=== PATIENT | female | born 1950 | race Caucasian/White ===

== ENCOUNTER 2016-06-22 14:07 | Observation (INO) | payer MEDICAID, MEDICARE, OTHER ==
[2016-06-22] MEDS ORDERED: ASPIRIN 81 MG CHEWABLE TAB PO ONE ×2 (14:15→14:24)
--- NOTE | 2016-06-22 14:31 | CPEKG ---
Heart Rate: 98 RR Interval: 612 P-R Interval: 152 QRSD Interval: 84 QT Interval: 344 QTC Interval: 440 P [place]: 71 QRS [place]: 55 T Wave [place]: 69 EKG Severity - ABNORMAL ECG - EKG Impression: SINUS RHYTHM EKG Impression: ABNRM R PROG, CONSIDER ASMI OR LEAD PLACEMENT Electronically Signed By: Edouard Haque 22-Jun-2016 15:49:43
--- NOTE | 2016-06-22 14:38 | EDPHY ---
H & P Time Seen by Provider: 06/22/16 14:15 HPI/ROS: HPI Chest discomfort, left arm pain. 65-year-old female by private vehicle with her friend. This patient reports that she developed chest tightness and pressure yesterday mid day. She reports it was associated with a numbness and aching in her left shoulder and left arm. She reports that she was also sweaty. She reports that she thought it was a panic attack. She took a clonazepam and her symptoms gradually went away. She reports that she woke up this morning with the exact same symptoms which is very unusual for her. She does not have a prior history of coronary artery disease. No history of pulmonary embolism or coagulopathy. ROS: Constitutional: No fever, no chills. No weakness. Eyes: No discharge. No changes in vision. ENT: No sore throat. No nasal congestion or rhinorrhea. Respiratory: No cough. No shortness of breath. Cardiac: No chest pain, no palpitations. Gastrointestinal: No abdominal pain, no vomiting, no diarrhea. Genitourinary: No hematuria. No dysuria or increased frequency with urination. Musculoskeletal: No back pain. No neck pain. No myalgias or arthralgias. Skin: No rashes. Neurological: No headache. No focal weakness or altered sensation. Past medical history: Fibromyalgia, anxiety. Social history: Smoker. Here with her friend. Physical Exam: General Appearance: Alert, no distress. This patient is responding to questions appropriately and in full sentences. This patient appears well- hydrated and well-nourished. Eyes: Pupils equal and round no pallor or injection. No lid edema, erythema or injection. Respiratory: There are no retractions, lungs are clear to auscultation with diminished air movement bilaterally. No tachypnea. Cardiovascular: Regular rate and rhythm. No murmur. Gastrointestinal: Abdomen is soft and nontender, no masses, bowel sounds normal. No focal tenderness at McBurney's point. No Chacon sign. Neurological: Motor sensory function is grossly intact. Cranial nerves are normal. Gait is normal. Skin: Warm and dry, no rashes. Musculoskeletal: Neck is supple and nontender. Extremities are symmetrical. No calf tenderness or swelling on palpation. No palpable cords. All joints range without pain or impingement. Psychiatric: No agitation. No depression. Database: EKG: EKG time is 2:20 p.m.; EKG shows a narrow complex normal sinus rhythm with a ventricular rate of 98. QS waves in V1 and V2. The WA, QRS, QT intervals are within normal limits. There are no ST-T wave changes indicative of ischemic or injury pattern. No evidence of right heart strain. Interpreted by me. Imaging: Chest x-ray AP portable; the cardiac mediastinal silhouette is unremarkable. No evidence of infiltrate or pneumothorax. No acute cardiopulmonary disease process noted. Interpreted by me. The radiology report per Dr. Draper is: Possible left lateral rib fracture. Clinically, there is no history of trauma. The patient denies tenderness on palpation to this area. Procedures: Emergency department course: At the time of my evaluation her chest discomfort and arm pain have resolved. She was placed on a cardiac monitor technician. IV was placed. EKG was performed. She was given 324 mg of chewed aspirin. 3:25 p.m., patient re-evaluated. Resting comfortably at this time. No chest pain. No shortness of breath. Results of diagnostic test discussed. Plan for admission that was previously discussed with her was reviewed. She endorses. All of her questions were answered. 3:30 p.m., spoke with hospitalist. Patient accepted for admission. Patient admitted to the [facility] in stable condition. Differential Diagnosis: The differential diagnosis on this patient includes but is not limited to acute coronary syndrome, myocardial infarction, anxiety attack. PE, aortic dissection , pneumonia, pneumothorax unlikely. This represents a partial list of diagnoses considered. These considerations are based on history, physical exam , past history, reassessment and diagnostic testing. Smoking Status: Current every day smoker Constitutional: Initial Vital Signs Temperature (C) 36.8 C 06/22/16 14:10 Heart Rate 85 06/22/16 14:10 Respiratory Rate 16 06/22/16 14:10 Blood Pressure 123/83 H 06/22/16 14:10 O2 Sat (%) 97 06/22/16 14:10 O2 Delivery Mode Room Air Allergies/Adverse Reactions: No Known Allergies Allergy (Unverified 09/04/14 10:05) Home Medications: Medication Instructions Recorded Ambien 5MG (*) 06/22/16 CLONAZEPAM 06/22/16 Flexeril 10 MG (*) 06/22/16 Medical Decision Making - Data Points Laboratory Results: Laboratory Results 06/22/16 14:25 01/16/17 14:25 06/22/16 14:25 WBC 6.28 10^3/uL (3.80-9.50) RBC 4.74 10^6/uL (4.18-5.33) Hgb 14.8 g/dL (12.6-16.3) Hct 42.3 % (38.0-47.0) MCV 89.2 fL (81.5-99.8) MCH 31.2 pg (27.9-34.1) MCHC 35.0 g/dL (32.4-36.7) RDW 13.1 % (11.5-15.2) Plt Count 327 10^3/uL (150-400) MPV 8.7 fL (8.7-11.7) Neut % (Auto) 47.9 % (39.3-74.2) Lymph % (Auto) 40.1 % (15.0-45.0) [place] % (Auto) 9.7 % (4.5-13.0) Eos % (Auto) 1.1 % (0.6-7.6) Baso % (Auto) 1.0 % (0.3-1.7) Nucleat RBC Rel Count 0.0 % (0.0-0.2) Absolute Neuts (auto) 3.01 10^3/uL (1.70-6.50) Absolute Lymphs (auto) 2.52 10^3/uL (1.00-3.00) Absolute Monos (auto) 0.61 10^3/uL (0.30-0.80) Absolute Eos (auto) 0.07 10^3/uL (0.03-0.40) Absolute Basos (auto) 0.06 10^3/uL (0.02-0.10) Absolute Nucleated RBC 0.00 10^3/uL (0-0.01) Immature Gran % 0.2 % (0.0-1.1) Immature Gran # 0.01 10^3/uL (0.00-0.10) PT 13.5 SEC (12.0-15.0) INR 1.04 (0.83-1.16) APTT 43.0 H SEC (23.0-38.0) Sodium 133 L mEq/L (134-144) Potassium 4.0 mEq/L (3.5-5.2) Chloride 99 mEq/L (97-110) Carbon Dioxide 22 mEq/l (22-31) Anion Gap 12 mEq/L (8-16) BUN 7 mg/dL (7-23) Creatinine 0.7 mg/dL (0.6-1.0) Estimated GFR > 60 Glucose 94 mg/dL (70-100) Calcium 9.1 mg/dL (8.5-10.4) Troponin I < 0.012 ng/mL (0-0.034) Medications Given: Discontinued Medications Aspirin (Aspirin) 324 mg PO EDNOW ONE Stop: 06/22/16 14:16 Last Admin: 06/22/16 14:29 Dose: Not Given Aspirin (Aspirin) 243 mg PO EDNOW ONE Stop: 06/22/16 14:25 Last Admin: 06/22/16 14:29 Dose: 243 mg Departure - Departure Disposition: [facility] Inpatient Acute Clinical Impression: Chest discomfort Referrals: Sasha Mejia MD [Primary Care Provider] - As per Instructions
[2016-06-22 14:39] LABS: % IMMATURE GRANULYOCYTES 0.2 % (0.0-1.1); ABSOLUTE IMMATURE GRANULOCYTES 0.01 10^3/uL (0.00-0.10); ADD DIFF? NO; ADD MORPH? NO; ADD SCAN? NO; ATYPICAL LYMPHOCYTE FLAG 10 (0-99); FRAGMENT RBC FLAG 0 (0-99); HEMATOCRIT 42.3 % (38.0-47.0); HEMOGLOBIN 14.8 g/dL (12.6-16.3); LEFT SHIFT FLG 0 (0-99); LIPEMIA HEMOLYSIS FLAG 90 (0-99); MEAN CELL HEMOGLOBIN 31.2 pg (27.9-34.1); MEAN CELL VOLUME 89.2 fL (81.5-99.8); MEAN PLATELET VOLUME 8.7 fL (8.7-11.7); PLATELET CLUMPS FLAG 10 (0-99); PLATELET COUNT 327 10^3/uL (150-400); RED BLOOD CELL COUNT 4.74 10^6/uL (4.18-5.33); RED CELL DISTRIBUTION WIDTH 13.1 % (11.5-15.2)
[2016-06-22 14:47] LABS: ANION GAP 12 mEq/L (8-16); CALCIUM 9.1 mg/dL (8.5-10.4); CARBON DIOXIDE 22 mEq/l (22-31); CHLORIDE 99 mEq/L (97-110); CREATININE 0.7 mg/dL (0.6-1.0); GLOMERULAR FILTRATION RATE > 60; GLUCOSE 94 mg/dL (70-100); SODIUM 133 mEq/L (134-144)
[2016-06-22 14:48] LABS: INR 1.04 (0.83-1.16); PROTIME(PATIENT) 13.5 SEC (12.0-15.0)
--- NOTE | 2016-06-22 14:56 | DX ---
Portable Chest , 14:39 History: Chest pain. Chest tightness. Left shoulder pain. Comparison: September 04, 2014 Findings: There is a possible left lateral 7th rib fracture. Lungs clear. Heart normal. No pneumothor ax or pleural effusion. There is a chronic thoracic dextro scoliosis. EKG leads overlie the chest. Impression: Possible left lateral rib fracture. Might rib x-rays be of any use? Results called to Dr. Haque.
[2016-06-22 14:59] LABS: TROPONIN I < 0.012 ng/mL (0-0.034)
[2016-06-22] MEDS ORDERED: NITROGLYCERIN 0.4 MG BTL SL PRN (16:50)
[2016-06-22] MEDS ORDERED: ACETAMINOPHEN 325 MG TAB PO PRN (16:50)
[2016-06-22] MEDS ORDERED: ONDANSETRON DISINTEGRATING 4 MG TAB PO PRN (16:50)
[2016-06-22] MEDS ORDERED: ONDANSETRON 4 MG/2 ML VIAL IVP PRN (16:50)
[2016-06-22] MEDS ORDERED: CYCLOBENZAPRINE 10 MG TAB PO PRN (16:54)
[2016-06-22] MEDS ORDERED: ZOLPIDEM TARTRATE 5 MG TAB PO PRN (16:54)
[2016-06-22] MEDS ORDERED: clonazePAM 0.5 MG TAB PO PRN (16:54)
--- NOTE | 2016-06-22 16:59 | PDEACUHP ---
History and Physical - Chief Complaint chest pain - History of Present Illness 65 yo female with h/o anxiety and fibromyalgia presents to ED with vague chest pain symptoms. Since yesterday, she has felt clammy and nauseous. She took Klonopin for these symptoms yesterday and they completely resolved. However, this am, the symptoms recurred and she reported a pain in her left chest, pressure like, radiating to her left shoulder. No associated SOB or diaphoresis , though the clamminess persisted even when the CP is absent. She received a full dose ASA in the ED. Her pain is completely resolved at the time of my interview and she believes it was all a panic attack. She has suffered from panic attacks in the past, but these symptoms felt more concerning thus she presented to the ED. She had a normal EKG and negative troponin. She is admitted to the hospital for further evaluation. History Information - Allergies/Home Medication List Allergies/Adverse Reactions: No Known Allergies Allergy (Unverified 09/04/14 10:05) Home Medications: Aspirin [Aspirin 325 mg (*)] 325 mg PO DAILY PRN 06/22/16 [Last Taken Unknown] Cyclobenzaprine [Flexeril 10 MG (*)] 10 mg PO DAILY PRN 06/22/16 [Last Taken ] Herbals/Supplements -Info Only 1 ea PO DAILY 06/22/16 [Last Taken Unknown] Naproxen Sodium [Aleve 220 MG (*)] 220 mg PO DAILY PRN 06/22/16 [Last Taken Unknown] Zolpidem Tartrate [Ambien 5MG (*)] 5 mg PO HS PRN 06/22/16 [Last Taken 06/21/16] clonazePAM [Klonopin (*)] 0.5 mg PO DAILY PRN 06/22/16 [Last Taken 06/21/16 21: 00] I have personally reviewed and updated: family history, medical history, social history, surgical history - Past Medical History fibromyalgia (anxiety) - Surgical History Reports: no pertinent surgical hx - Family History Additional family history: no family h/o PHD - Social History Smoking Status: Current every day smoker Alcohol Use: None Drug Use: None Physical Exam Temp Pulse Resp BP Pulse Ox 36.2 C 81 20 145/81 H 96 06/22/16 16:02 06/22/16 16:02 06/22/16 16:02 06/22/16 16:02 06/22/16 16:02 Constitutional: no apparent distress Eyes: PERRL Ears, Nose, Mouth, Throat: moist mucous membranes Cardiovascular: regular rate and rhythym, no murmur, rub, or gallop Respiratory: no respiratory distress, clear to auscultation Gastrointestinal: normoactive bowel sounds, soft, non-tender abdomen Skin: warm Neurologic: AAOx3 Psychiatric: interacting appropriately Lab Data & Imaging Review 06/22/16 14:25 06/22/16 14:25 WBC 6.28 10^3/uL (3.80-9.50) 06/22/16 14:25 RBC 4.74 10^6/uL (4.18-5.33) 06/22/16 14:25 Hgb 14.8 g/dL (12.6-16.3) 06/22/16 14:25 Hct 42.3 % (38.0-47.0) 06/22/16 14:25 MCV 89.2 fL (81.5-99.8) 06/22/16 14:25 MCH 31.2 pg (27.9-34.1) 06/22/16 14:25 MCHC 35.0 g/dL (32.4-36.7) 06/22/16 14:25 RDW 13.1 % (11.5-15.2) 06/22/16 14:25 Plt Count 327 10^3/uL (150-400) 06/22/16 14:25 MPV 8.7 fL (8.7-11.7) 06/22/16 14:25 Neut % (Auto) 47.9 % (39.3-74.2) 06/22/16 14:25 Lymph % (Auto) 40.1 % (15.0-45.0) 06/22/16 14:25 [place] % (Auto) 9.7 % (4.5-13.0) 06/22/16 14:25 Eos % (Auto) 1.1 % (0.6-7.6) 06/22/16 14:25 Baso % (Auto) 1.0 % (0.3-1.7) 06/22/16 14:25 Nucleat RBC Rel Count 0.0 % (0.0-0.2) 06/22/16 14:25 Absolute Neuts (auto) 3.01 10^3/uL (1.70-6.50) 06/22/16 14:25 Absolute Lymphs (auto) 2.52 10^3/uL (1.00-3.00) 06/22/16 14:25 Absolute Monos (auto) 0.61 10^3/uL (0.30-0.80) 06/22/16 14:25 Absolute Eos (auto) 0.07 10^3/uL (0.03-0.40) 06/22/16 14:25 Absolute Basos (auto) 0.06 10^3/uL (0.02-0.10) 06/22/16 14:25 Absolute Nucleated RBC 0.00 10^3/uL (0-0.01) 06/22/16 14:25 Immature Gran % 0.2 % (0.0-1.1) 06/22/16 14:25 Immature Gran # 0.01 10^3/uL (0.00-0.10) 06/22/16 14:25 PT 13.5 SEC (12.0-15.0) 06/22/16 14:25 INR 1.04 (0.83-1.16) 06/22/16 14:25 APTT 43.0 SEC (23.0-38.0) H 06/22/16 14:25 Sodium 133 mEq/L (134-144) L 06/22/16 14:25 Potassium 4.0 mEq/L (3.5-5.2) 06/22/16 14:25 Chloride 99 mEq/L (97-110) 06/22/16 14:25 Carbon Dioxide 22 mEq/l (22-31) 06/22/16 14:25 Anion Gap 12 mEq/L (8-16) 06/22/16 14:25 BUN 7 mg/dL (7-23) 06/22/16 14:25 Creatinine 0.7 mg/dL (0.6-1.0) 06/22/16 14:25 Estimated GFR > 60 06/22/16 14:25 Glucose 94 mg/dL (70-100) 06/22/16 14:25 Calcium 9.1 mg/dL (8.5-10.4) 06/22/16 14:25 Troponin I < 0.012 ng/mL (0-0.034) 06/22/16 14:25 Assessment & Plan Assessment: Chest discomfort (Acute) - Low suspicion for ACS. CV risk factors include tobacco abuse. Pain is completely resolved. Initial EKG shows Q waves V1, V2, no prior h/o [place]. Repeat EKG without Q's in V2, suspect lead placement issue on initial tracing. Initial trop negative. CXR reported as possible left lateral rib fracture, but pt is non-tender, no h/o injury. Will admit to [facility], trend troponin, check lipid status in am. Exercise stress test in am if above w/u negative. Anxiety / panic attacks - prn klonopin Fibromyalgia - cont outpt meds Full code Dispo - obs
--- NOTE | 2016-06-22 17:22 | CPEKG ---
Heart Rate: 73 RR Interval: 822 P-R Interval: 172 QRSD Interval: 94 QT Interval: 400 QTC Interval: 441 P [place]: 71 QRS [place]: 53 T Wave [place]: 53 EKG Severity - NORMAL ECG - EKG Impression: SINUS RHYTHM Electronically Signed By: Kenroy Terrell 23-Jun-2016 17:21:56
[2016-06-23 02:37] LABS: CHOLESTEROL 216 mg/dL (140-220); CHOLESTEROL/HDL RATIO 3.93 RATIO (1.00-4.44); HIGH DENSITY LIPOPROTEIN 55 mg/dL (40-85); LOW DENSITY LIPOPROTEIN 143 mg/dL (80-100); NON-HIGH DENSITY LIPOPROTEIN 161 mg/dL (90-129); TRIGLYCERIDE 91 mg/dL (35-135); VERY LOW DENSITY LIPOPROTEINS 18 mg/dL (8-25)
[2016-06-23] MEDS ORDERED: ASPIRIN 325 MG TAB PO PRN (08:00)
[2016-06-23 08:53] VITALS: BP 116/66; PULSE 80; RESP 18; TEMP 98.7; O2SAT 96
--- NOTE | 2016-06-23 09:18 | CPEKG ---
Heart Rate: 77 RR Interval: 779 P-R Interval: 160 QRSD Interval: 96 QT Interval: 372 QTC Interval: 421 P [place]: 75 QRS [place]: 79 T Wave [place]: 69 EKG Severity - NORMAL ECG - EKG Impression: SINUS RHYTHM Electronically Signed By: Kenroy Terrell 23-Jun-2016 17:21:51
--- NOTE | 2016-06-23 10:29 | PDCARST ---
CAR Stress Test Results Type of Stress Test: TM stress test Indication: cp Description of Procedure: After informed consent was obtained, pt was established to ECG, BP, HR, oximetry monitoring. At b/l, pt has SR, BP 108/72, O2 sat 94% RA, and HR 87. Pt exercised for a total of 7 minutes without cp. No ischemic ECG changes noted. Occasional PAC/PVC singles through exercise. Peak BP 188/70. Pt achieved HR of 156 which is 100% of MPHR based on age. Recovery was unremarkable. O2 sats remained wnl throughout testing. Impression: Low risk TM stress test with DTS +7 Conclusion: Likely noncardiac cp
--- NOTE | 2016-06-23 11:16 | GDS ---
[f rep st] DISCHARGE SUMMARY DIAGNOSES: 1. Chest pain. 2. History of panic attacks. 3. History of fibromyalgia. 4. Anxiety. HOSPITAL COURSE: A 65-year-old female presented with vague chest pain. She felt that it was similar to her previous panic attacks, although the duration was longer. Because of that, she underwent car diac stress test which was negative for ischemia. Incidentally, a possible left 7th rib fracture was noted on x-ray. She does not have any tenderness to palpation and there are no symptoms that were c learly attributed to that. I think this is likely an artifact. She will be discharged in stable con dition. We will continue all of her home medications. /[id number]/MODL
== END 2016-06-23 12:13 | disposition home or self-care (01) ==
LOC: F1N 15:56
PROVIDERS: ADMIT Hospitalist; ATTEND Hospitalist
DX: R07.9 Chest pain, unspecified (principal); M79.602 Pain in left arm; F41.9 Anxiety disorder, unspecified; M79.7 Fibromyalgia; R91.8 Other nonspecific abnormal finding of lung field; F17.200 Nicotine dependence, unspecified, uncomplicated
CPT/HCPCS: 71010; 93005; 93017; 99285; G0378

== ENCOUNTER 2017-02-18 13:12 | Emergency (ER) | payer OTHER ==
[2017-02-18 13:18] VITALS: RESP 18
[2017-02-18] MEDS ORDERED: LORazepam 2 MG/ML INJ IVP ONE (14:59)
--- NOTE | 2017-02-18 15:03 | EDPHY ---
H & P Stated Complaint: "Feels like a panic attack but not sure". Body aches, chills Time Seen by Provider: 02/18/17 14:48 HPI/ROS: CHIEF COMPLAINT: Anxiety HISTORY OF PRESENT ILLNESS: The patient is a 66-year-old female who comes to the emergency department complaining of chills, anxiety, sweaty hands as well as spasms in her upper abdomen and left shoulder and occasional right arm and bilateral leg numbness. She has had the symptoms for 3 days and states that they are similar to previous panic attacks. She takes Klonopin 0.5 mg p.r.n. for these panic attacks. When she takes this it works however she has never had an attack last for 3 days before. She has also needed to double up on her medications for them to be affective. Her history of anxiety is managed by the [facility]. She denies history of depression or bipolar or other psychiatric history. She does have a history of fibromyalgia. She has been seen several times for similar symptoms. She was admitted in June of this year and had negative troponins and a stress test that was negative. She states that she is currently asymptomatic. She took aspirin today. REVIEW OF SYSTEMS: Constitutional: denies: chills, fever, recent illness, recent injury EENTM: denies: blurred vision, double vision, nose congestion Respiratory: denies: cough, shortness of breath Cardiac: See HPI denies: chest pain, irregular heart rate, lightheadedness, palpitations Gastrointestinal/Abdominal: denies: abdominal pain, diarrhea, nausea, vomiting, blood streaked stools Genitourinary: denies: dysuria, frequency, hematuria, pain Musculoskeletal: denies: joint pain, muscle pain Skin: denies: lesions, rash, jaundice, bruising Neurological: denies: headache, numbness, paresthesia, tingling, dizziness, weakness Hematologic/Lymphatic: denies: blood clots, easy bleeding, easy bruising Immunologic/allergic: denies: HIV/AIDS, transplant EXAM: GENERAL: Well-appearing, well-nourished and in no acute distress. HEAD: Atraumatic, normocephalic. EYES: Pupils equal round and reactive to light, extraocular movements intact, sclera anicteric, conjunctiva are normal. ENT: TMs normal, nares patent, oropharynx clear without exudates. Moist mucous membranes. NECK: Normal range of motion, supple without lymphadenopathy or JVD. LUNGS: Breath sounds clear to auscultation bilaterally and equal. No wheezes rales or rhonchi. HEART: Regular rate and rhythm without murmurs, rubs or gallops. ABDOMEN: Soft, nontender, normoactive bowel sounds. No guarding, no rebound. No masses appreciated. BACK: No CVA tenderness, no spinal tenderness, step-offs or deformities EXTREMITIES: Normal range of motion, no pitting or edema. No clubbing or cyanosis. NEUROLOGICAL: Cranial nerves II through XII grossly intact. Normal speech, normal gait. 5/5 strength, normal movement in all extremities, normal sensation PSYCH: Normal mood, normal affect. SKIN: Warm, dry, normal turgor, no visible rashes or lesions. Source: Patient Exam Limitations: No limitations - Personal History Current Tetanus Diphtheria and Acellular Pertussis (TDAP): Yes - Medical/Surgical History Hx Asthma: No Hx Chronic Respiratory Disease: No Hx Diabetes: No Hx Cardiac Disease: No Hx Renal Disease: No Hx Cirrhosis: No Hx Alcoholism: No Hx HIV/AIDS: No Hx Splenectomy or Spleen Trauma: No Other PMH: PMH- TONSILECTOMY,FIBROMYLAGIA, PANIC ATTACKS - Family History Significant Family History: No pertinent family hx - Social History Smoking Status: Current every day smoker Alcohol Use: Sober Drug Use: None Constitutional: Initial Vital Signs Temperature (C) 36.5 C 02/18/17 13:14 Heart Rate 87 02/18/17 13:14 Respiratory Rate 18 02/18/17 13:14 Blood Pressure 147/71 H 02/18/17 13:14 O2 Sat (%) 96 02/18/17 13:14 O2 Delivery Mode Room Air Allergies/Adverse Reactions: No Known Allergies Allergy (Unverified 09/04/14 10:05) Home Medications: Medication Instructions Recorded Aspirin [Aspirin 325 mg (*)] 325 mg PO DAILY PRN 06/22/16 Cyclobenzaprine [Flexeril 10 MG 10 mg PO DAILY PRN 06/22/16 (*)] Herbals/Supplements -Info Only 1 ea PO DAILY 06/22/16 Naproxen Sodium [Aleve 220 MG (*)] 220 mg PO DAILY PRN 06/22/16 Zolpidem Tartrate [Ambien 5MG (*)] 5 mg PO HS PRN 06/22/16 clonazePAM [Klonopin (*)] 0.5 mg PO DAILY PRN 06/22/16 LORazepam [Ativan 1 mg (RX)] 1 mg PO Q6-8PRN PRN #10 tab 02/18/17 Medical Decision Making - Diagnostics EKG Interpretation: An EKG obtained and was read and documented in trace view. Please see trace view for full reading and report. Sinus rhythm, no acute ischemic changes ED Course/Re-evaluation: Will repeat much of the tests previously done to evaluate for cardiac concerns. She is PERC negative for PE. 5:20 p.m. we discussed the lab results. The patient feels completely better after Ativan. She is reassured and eager to go home. I will give her a small prescription for Ativan to take p.r.n. until she follows up with her primary to discuss other options for anxiety treatment chronically. We also discussed indications for returning to the emergency department. Patient and friend agree. Differential Diagnosis: Partial list of the Differential diagnosis considered include but were not limited to; anxiety, acute coronary disease, and although unlikely based on the history and physical exam, I also considered PE, pneumonia, trauma, infection. I discussed these differential diagnoses and the plan with the patient as well as the usual and expected course. The patient understands that the diagnosis is provisional and that in medicine we are not always correct and that further workup is often warranted. Usual and customary warnings were given. All of the patient's questions were answered. The patient was instructed to return to the emergency department should the symptoms at all worsen or return, otherwise to followup with the physician as we discussed. - Data Points Laboratory Results: Laboratory Results 02/18/17 15:15 02/18/17 15:15 Medications Given: Discontinued Medications Lorazepam (Ativan Injection) 1 mg IVP EDNOW ONE Stop: 02/18/17 15:00 Last Admin: 02/18/17 15:17 Dose: 1 mg Departure - Departure Disposition: Home, Routine, Self-Care Clinical Impression: Chest discomfort, Anxiety about health Condition: Fair Instructions: Chest Pain (ED), Anxiety (ED) Referrals: Sasha Mejia MD [Primary Care Provider] - As per Instructions Prescriptions: LORazepam [Ativan 1 mg (RX)] 1 mg PO Q6-8PRN PRN #10 tab PRN Reason: *Anxiety/Agitation/Insomnia
--- NOTE | 2017-02-18 15:29 | CPEKG ---
Heart Rate: 71 RR Interval: 845 P-R Interval: 172 QRSD Interval: 90 QT Interval: 400 QTC Interval: 435 P [place]: 70 QRS [place]: 57 T Wave [place]: 53 EKG Severity - NORMAL ECG - EKG Impression: SINUS RHYTHM Electronically Signed By: Román Ramirez 18-Feb-2017 15:35:38
[2017-02-18 15:55] LABS: % IMMATURE GRANULYOCYTES 0.3 % (0.0-1.1); ABSOLUTE IMMATURE GRANULOCYTES 0.03 10^3/uL (0.00-0.10); ADD DIFF? NO; ADD MORPH? NO; ADD SCAN? NO; ATYPICAL LYMPHOCYTE FLAG 10 (0-99); FRAGMENT RBC FLAG 0 (0-99); HEMATOCRIT 42.8 % (38.0-47.0); HEMOGLOBIN 14.4 g/dL (12.6-16.3); LEFT SHIFT FLG 0 (0-99); LIPEMIA HEMOLYSIS FLAG 80 (0-99); MEAN CELL HEMOGLOBIN 31.6 pg (27.9-34.1); MEAN CELL HEMOGLOBIN CONCENTR. 33.6 g/dL (32.4-36.7); MEAN CELL VOLUME 93.9 fL (81.5-99.8); MEAN PLATELET VOLUME 9.4 fL (8.7-11.7); PLATELET CLUMPS FLAG 0 (0-99); PLATELET COUNT 304 10^3/uL (150-400); RED BLOOD CELL COUNT 4.56 10^6/uL (4.18-5.33); RED CELL DISTRIBUTION WIDTH 13.7 % (11.5-15.2)
[2017-02-18 16:09] LABS: INR 1.03 (0.83-1.16); PROTIME(PATIENT) 13.4 SEC (12.0-15.0)
[2017-02-18 16:10] LABS: APTT 33.6 SEC (23.0-38.0)
[2017-02-18 16:18] LABS: ALANINE AMINOTRANSFERASE 25 IU/L (9-52); ALBUMIN 4.5 g/dL (3.5-5.0); ALKALINE PHOSPHATASE 59 IU/L (38-126); ANION GAP 12 mEq/L (8-16); ASPARTATE AMINOTRANSFERASE 19 IU/L (14-46); BILIRUBIN,TOTAL 0.4 mg/dL (0.1-1.4); BILIRUBIN-CONJUGATED 0.2 mg/dL (0.0-0.5); BILIRUBIN-UNCONJUGATED 0.2 mg/dL (0.0-1.1); CALCIUM 9.4 mg/dL (8.5-10.4); CARBON DIOXIDE 22 mEq/l (22-31); CHLORIDE 101 mEq/L (97-110); CREATININE 0.7 mg/dL (0.6-1.0); GLOMERULAR FILTRATION RATE > 60; GLUCOSE 81 mg/dL (70-100); POTASSIUM 4.2 mEq/L (3.5-5.2); SODIUM 135 mEq/L (134-144); TOTAL PROTEIN 7.5 g/dL (6.3-8.2)
[2017-02-18 16:48] LABS: TROPONIN I < 0.012 ng/mL (0.000-0.034)
[2017-02-18 17:38] VITALS: BP 146/73; PULSE 75; TEMP 98.4; O2SAT 95
== END 2017-02-18 17:39 | disposition home or self-care (01) ==
DX: R07.89 Other chest pain (principal); F41.9 Anxiety disorder, unspecified; F17.200 Nicotine dependence, unspecified, uncomplicated; Z79.82 Long term (current) use of aspirin
CPT/HCPCS: 71020; 93005; 96374; 99285; J2060

== ENCOUNTER 2017-09-30 15:27 | Emergency (ER) | payer OTHER ==
--- NOTE | 2017-09-30 16:01 | CPEKG ---
Heart Rate: 102 RR Interval: 588 P-R Interval: 136 QRSD Interval: 96 QT Interval: 340 QTC Interval: 443 P [place]: 79 QRS [place]: 48 T Wave [place]: 68 EKG Severity - OTHERWISE NORMAL ECG - EKG Impression: SINUS TACHYCARDIA EKG Impression: VENTRICULAR PREMATURE COMPLEX Electronically Signed By: Wayne Perez 30-Sep-2017 21:02:57
--- NOTE | 2017-09-30 16:07 | EDPHY ---
HPI/HX/ROS/PE/MDM Narrative: CHIEF COMPLAINT: Shortness of breath, chest tightness, chills HISTORY OF PRESENT ILLNESS: The patient is a 67 y/o female with a history of fibromyalgia and panic attacks complaining of shortness of breath, chest pressure, and feeling clammy onset two days ago. When her symptoms initially started, she woke up with chills and eventually developed sweats, nausea, shortness of breath, lightheadedness, and intermittent chest pressure. She took 2 Aspirin yesterday without relief of symptoms. Today her symptoms continued and she became concerned as these symptoms feel like a panic attack that "wouldn't stop". Several hours ago she took 2 Aspririn and again had no relief of symptoms, so she decided to present to the emergency department. She is currently complaining of mild left flank pain and feels like she can't get enough air in when breathing. Denies change in symptoms when exerting herself. Fibromyalgia has not caused symptoms like this before. Denies history of asthma, emphysema, COPD, ME, cardiac stents, pedal edema, DVT, PE, or diabetes No fever, cough, upper respiratory infection, palpitations, vomiting, diarrhea, urinary complaints, headache. REVIEW OF SYSTEMS: Aside from elements discussed in the HPI, a comprehensive 10-point review of systems was reviewed and is negative. PAST MEDICAL HISTORY: Tonsillectomy, neuropathy, fibromyalgia, panic attacks SOCIAL HISTORY: Friend at bedside, lives in [place], employed, smoker VITAL SIGNS: Reviewed by me GENERAL: Well-developed, well-nourished. HEENT: Atraumatic. Eyes: No icterus, no injection. Mouth: moist mucous membranes. No erythema or lesions. Neck: supple with no adenopathy. LUNGS: Diminished breath sounds throughout, increased work of breathing, no wheezes, rhonchi or rales. CARDIAC: Isolated premature beat on room monitor, tachycardic when she initially presented to the emergency department, no rubs, murmurs or gallops. ABDOMEN: Soft, nontender, nondistended, bowel sounds normal. BACK: No CVA tenderness. EXTREMITIES: No trauma. No edema. Range of motion is normal throughout. NEURO: Alert and oriented, grossly nonfocal. SKIN: Warm and dry, no rash. PSYCHIATRIC: Normal mentation, no agitation. Portions of this note were transcribed by a medical insurance coding specialist. I personally performed a history, physical exam, medical decision making, and confirmed accuracy of information the transcribed note. ED Course: The patient is a 67 y/o female with a history of fibromyalgia and panic attacks presenting with shortness of breath, chest pressure, and feeling clammy onset two days ago. On exam she has diminished breath sounds throughout and increased work of breathing. On the room monitor she has an isolated premature beat and was tachycardic when she initially presented to the emergency department. Labs, EKG, and chest x-ray ordered. DuoNeb and albuterol administered. 1559: 12-LEAD EKG: Please see the full report in [facility]. My interpretation: Sinus tachycardia with a rate of 102, ventricular premature complex. Significant baseline artifact. 1750: Chest x-ray does not reveal active cardiopulmonary disease, suspect airways disease. Labs including troponin and ddimer negative. 1755: Reassessed patient and discussed imaging and laboratory findings. I discussed possibility of airways disease or COPD as cause of patient chest tightness She is reluctant to do so, but does understand my concerns. I have advised her to use her inhaler, Prednisone, and Clonazepam as directed. Return precautions provided; patient is comfortable with this plan. 1802: 12-LEAD EKG: Please see the full report in [facility]. My interpretation: Sinus rhythm with a rate of 93 Patient is safe to be discharged. S he will have her first dose of Prednisone hear and an additional DuoNeb prior to discharge. MDM: Diff dx considered included but not limited to airways disease, pulmonary infectious process, pulmonary embolism, anxiety, chest wall pain, cardiac causes including ACS. - Data Points Imaging: I viewed and interpreted images myself Laboratory Results: Laboratory Results 09/30/17 16:00 09/30/17 16:00 Medications Given: Discontinued Medications Albuterol (Proventil Neb) 3 ml IH EDNOW ONE Stop: 09/30/17 16:33 Last Admin: 09/30/17 16:38 Dose: 3 ml Albuterol (Proventil Neb) 3 ml IH EDNOW ONE Stop: 09/30/17 18:12 Last Admin: 09/30/17 18:27 Dose: 3 ml Albuterol Sulfate (Proventil Inh Prepack) 1 mdi TAKEHOME EDNOW ONE Stop: 09/30/17 18:39 Last Admin: 09/30/17 18:43 Dose: 1 mdi Albuterol/Ipratropium (Duoneb) 3 ml IH EDNOW ONE Stop: 09/30/17 16:33 Last Admin: 09/30/17 16:38 Dose: 3 ml Prednisone (Prednisone) 40 mg PO EDNOW ONE Stop: 09/30/17 17:58 Last Admin: 09/30/17 18:26 Dose: 40 mg General Time Seen by Provider: 09/30/17 16:01 Initial Vital Signs: Initial Vital Signs Temperature (C) 37.3 C 09/30/17 15:39 Heart Rate 110 H 09/30/17 15:39 Respiratory Rate 16 09/30/17 15:39 Blood Pressure 135/75 H 09/30/17 15:39 O2 Sat (%) 96 09/30/17 15:39 O2 Delivery Mode Room Air Allergies/Adverse Reactions: No Known Allergies Allergy (Unverified 09/04/14 10:05) Home Medications: Medication Instructions Recorded RX: Aspirin [Aspirin 325 mg (*)] 325 mg PO DAILY PRN 06/22/16 RX: Cyclobenzaprine [Flexeril 10 10 mg PO DAILY PRN 06/22/16 MG (*)] RX: Herbals/Supplements -Info Only 1 ea PO DAILY 06/22/16 RX: Naproxen Sodium [Aleve 220 MG 220 mg PO DAILY PRN 06/22/16 (*)] RX: Zolpidem Tartrate [Ambien 5MG 5 mg PO HS PRN 06/22/16 (*)] Naltrexone 09/30/17 RX: clonazePAM [Klonopin (*)] 0.5 mg PO TID PRN #20 tab 09/30/17 RX: predniSONE 40 mg PO DAILY #4 tab 09/30/17 Departure - Departure Disposition: Home, Routine, Self-Care Clinical Impression: Reactive airway disease, Shortness of breath Condition: Good Instructions: Reactive Airways Disease (ED), Shortness of Breath (ED) Additional Instructions: For your possible airways disease: 1. Use your inhaler as directed. 2. Take Prednisone as directed For your panic attacks, use Clonazepam as needed. Follow up with your primary care provider in the next week without fail. Be sure to tell them this is an emergency department follow up visit. Return to the Emergency Department for fever, chest pain, shortness of breath, increasing pain or other worsening of condition. Referrals: DANICA OLVERA [Other] - As per Instructions Prescriptions: RX: clonazePAM [Klonopin (*)] 0.5 mg PO TID PRN #20 tab PRN Reason: Anxiety RX: predniSONE 40 mg PO DAILY #4 tab Report Scribed for: Jeniffer Morrison Report Scribed by: Blanca Reilly Date of Report: 09/30/17 Time of Report: 16:07
[2017-09-30] MEDS ORDERED: IPRATROPIUM/ALBUTEROL 3 ML DEYVIAL IH ONE (16:32)
[2017-09-30] MEDS ORDERED: ALBUTEROL 3 ML DEYVIAL IH ONE ×2 (16:32→18:11)
[2017-09-30 16:38] LABS: PLATELET COUNT 318 10^3/uL (150-400)
[2017-09-30 17:46] VITALS: BP 130/96
[2017-09-30] MEDS ORDERED: predniSONE 20 MG TAB PO ONE (17:57)
--- NOTE | 2017-09-30 18:04 | CPEKG ---
Heart Rate: 93 RR Interval: 645 P-R Interval: 152 QRSD Interval: 84 QT Interval: 352 QTC Interval: 438 P [place]: 78 QRS [place]: 60 T Wave [place]: 72 EKG Severity - ABNORMAL ECG - EKG Impression: SINUS RHYTHM EKG Impression: PROBABLE ANTEROSEPTAL INFARCT, OLD Electronically Signed By: Jeniffer Morrison 30-Sep-2017 21:01:32
[2017-09-30] MEDS ORDERED: ALBUTEROL INH PREPACK MDI TAKEHOME ONE (18:38)
== END 2017-09-30 18:40 | disposition home or self-care (01) ==
DX: J45.909 Unspecified asthma, uncomplicated (principal); Z79.82 Long term (current) use of aspirin
CPT/HCPCS: 71046; 93005; 99285; J7512; J7613